=== PATIENT | female | born 1990 | race Caucasian/White ===

== ENCOUNTER 2016-06-28 13:16 | Emergency (ER) | payer OTHER ==
[2016-06-28 13:16] VITALS: BMI 25.7
[2016-06-28 13:33] VITALS: BP 119/98; PULSE 80; RESP 18; TEMP 98.1; O2SAT 100
== END 2016-06-28 14:50 | disposition left against medical advice (07) ==
LOC: H.ER 13:16
DX: Z02.89 Encounter for other administrative examinations (principal)

== ENCOUNTER 2016-06-28 16:52 | Emergency (ER) | payer SELFPAY ==
[2016-06-28 16:52] VITALS: BMI 25.7
[2016-06-28 17:07] VITALS: BP 120/78; PULSE 78; RESP 18; TEMP 98.8; O2SAT 100
== END 2016-06-28 18:27 | disposition left against medical advice (07) ==
LOC: H.ER 16:52
DX: Z02.89 Encounter for other administrative examinations (principal)

== ENCOUNTER 2016-08-29 12:00 | Emergency (ER) | payer SELFPAY ==
[2016-08-29 12:00] VITALS: BMI 25.7
[2016-08-29 12:14] VITALS: BP 115/61; PULSE 62; RESP 20; TEMP 98.5; O2SAT 99
--- NOTE | 2016-08-29 12:49 | ED PDOC ---
HPI: Psych/Substance Abuse Time Seen by Provider: 08/29/16 12:48 Chief Complaint (Nursing): Psychiatric Evaluation Chief Complaint (Provider): PANIC ATTACKS History Per: Patient (26 Y/O FEMALE HERE WITH MULTIPLE PANIC ATTACKS X 2 WEEKS. PATIENT HAS BEEN ON TRAZADONE IN PAST BUT STOPPED X 1 YEAR. DENIES ANY SI/ HI. IS HERE TODAY HOPING TO HAVE RX WRITTEN FOR HER.) Past Medical History Reviewed: Historical Data, Nursing Documentation, Vital Signs Vital Signs: Last Vital Signs Temp 98.5 F 08/29/16 12:14 Pulse 62 08/29/16 12:14 Resp 20 08/29/16 12:14 BP 115/61 08/29/16 12:14 Pulse Ox 99 08/29/16 12:14 - Medical History PMH: Anxiety, Depression, Migraine Denies: Kidney Stones, Chronic Kidney Disease - Surgical History Surgical History: Tonsillectomy - Family History Family History: States: Unknown Family Hx - Home Medications Home Medications: Ambulatory Orders Medication Instructions Recorded ALPRAZolam [Xanax] 0.25 mg PO DAILY PRN #2 tab 08/29/16 - Allergies Allergies/Adverse Reactions: Allergies Allergy/AdvReac Type Severity Reaction Status Date / Time No Known Allergies Allergy Verified 12/18/13 21:14 Review of Systems ROS Statement: Except As Marked, All Systems Reviewed And Found Negative Physical Exam - Reviewed Nursing Documentation Reviewed: Yes Vital Signs Reviewed: Yes - Physical Exam Appears: Positive for: Well, Non-toxic, No Acute Distress Head Exam: Positive for: ATRAUMATIC, NORMAL INSPECTION, NORMOCEPHALIC Skin: Positive for: Normal Color, Warm, DRY Eye Exam: Positive for: EOMI, Normal appearance, PERRL ENT: Positive for: Normal ENT Inspection Neck: Positive for: Normal, Painless ROM Cardiovascular/Chest: Positive for: Regular Rate, Rhythm Respiratory: Positive for: CNT, Normal Breath Sounds Gastrointestinal/Abdominal: Positive for: Normal Exam, Bowel Sounds, Soft Back: Positive for: Normal Inspection Extremity: Positive for: Normal ROM Neurologic/Psych: Positive for: Alert, Oriented - ECG O2 Sat by Pulse Oximetry: 99 - Progress ED Course And Treament: seen by Crisis. cleared for d/c by Dr. Lupillo Hernandez Diagnosis Anxiety EKG: NSR 68bpm; no ectopy; non specific t wave abnormality V3; Patient re-examined. Calm in ED. States concerned about repeat episode of panic. Disposition - Clinical Impression Clinical Impression: Panic attack - Patient ED Disposition Is Patient to be Admitted: No - Disposition Referrals: [facility] [Outside] Disposition: Routine/Home Disposition Time: 14:15 Condition: FAIR Prescriptions: ALPRAZolam [Xanax] 0.25 mg PO DAILY PRN #2 tab PRN Reason: Anxiety Instructions: Panic Attack (ED)
--- NOTE | 2016-08-30 16:47 | CARD ---
APPROVED REPORT EKG Measurement Heart [id number] <Conclusion> Normal sinus rhythm with sinus arrhythmia Normal ECG
== END 2016-08-29 14:42 | disposition home or self-care (01) ==
LOC: H.ER 12:00
DX: F41.0 Panic disorder [episodic paroxysmal anxiety] (principal)

== ENCOUNTER 2017-10-02 14:00 | Emergency (ER) | payer OTHER ==
[2017-10-02 14:00] VITALS: BMI 25.7
[2017-10-02 14:05] VITALS: BP 108/72; PULSE 79; RESP 16; TEMP 98.2; O2SAT 100
--- NOTE | 2017-10-02 14:30 | ED PDOC ---
HPI: Female Pain Time Seen by Provider: 10/02/17 14:18 Chief Complaint (Nursing): Female Genitourinary Chief Complaint (Provider): UTI History Per: Patient Additional Complaint(s): 27 yo female, no PMH, presents to ED 6 weeks , , with complaints of vaginal bleeding and hematuria, vaginal itching and increased frequency. Diagnosed with UTI on by [facility] and prescribed antibiotics. States she has been taking Macrobid as prescribed but symptoms are worsening. Denies abdominal pain. Complaints of swelling to left labia beginning today. No fever, or chills. Past Medical History Reviewed: Nursing Documentation, Vital Signs Vital Signs: Last Vital Signs Temp 98.2 F 10/02/17 14:02 Pulse 79 10/02/17 14:02 Resp 16 10/02/17 14:02 BP 108/72 10/02/17 14:02 Pulse Ox 100 10/02/17 14:02 - Medical History PMH: Anxiety, Depression, Migraine Denies: Kidney Stones, Chronic Kidney Disease - Surgical History Surgical History: Tonsillectomy - Family History Family History: States: Unknown Family Hx - Living Arrangements Living Arrangements: With Family - Social History Current smoker - smoking cessation education provided: No Alcohol: None Drugs: Denies - Home Medications Home Medications: Ambulatory Orders Medication Instructions Recorded ALPRAZolam [Xanax] 0.25 mg PO DAILY PRN #2 tab 08/29/16 Cephalexin [cephalexin] 500 mg PO BID #14 cap 10/02/17 - Allergies Allergies/Adverse Reactions: Allergies Allergy/AdvReac Type Severity Reaction Status Date / Time No Known Allergies Allergy Verified 12/18/13 21:14 Review of Systems ROS Statement: Except As Marked, All Systems Reviewed And Found Negative Genitourinary Female: Positive for: Dysuria, Hematuria Skin: Positive for: Other (abscess) Physical Exam - Reviewed Nursing Documentation Reviewed: Yes Vital Signs Reviewed: Yes - Physical Exam Appears: Positive for: Well, Non-toxic, No Acute Distress Head Exam: Positive for: ATRAUMATIC, NORMAL INSPECTION, NORMOCEPHALIC Skin: Positive for: Normal Color, Warm, DRY Eye Exam: Positive for: EOMI, Normal appearance, PERRL ENT: Positive for: Normal ENT Inspection Neck: Positive for: Normal, Painless ROM Cardiovascular/Chest: Positive for: Regular Rate, Rhythm Respiratory: Positive for: CNT, Normal Breath Sounds Gastrointestinal/Abdominal: Positive for: Normal Exam, Soft Pelvic Exam: Positive for: Other (lft bartholins tenderness, erythema and site firm to palpation, non fluctuant) Back: Positive for: Normal Inspection Extremity: Positive for: Normal ROM Neurologic/Psych: Positive for: Alert, Oriented - Laboratory Results Result Diagrams: 10/02/17 14:53 - ECG O2 Sat by Pulse Oximetry: 100 Medical Decision Making Medical Decision Making: IV access established and diagnostics ordered Pt aferbile, 98.7 F WBC 10.3 UA (+) blood and leuks IV Rocephin started. Case discussed with house OB, Dr. Prado, who agreed Pt stable for discharge with outpatient follow up. Pt reports she will contact [facility] tomorrow. Pt also advised warm compresses to affected area. Return to ED if at anytime condition worsens Disposition - Clinical Impression Clinical Impression: Urinary tract infection, Bartholin cyst - Patient ED Disposition Is Patient to be Admitted: No - Disposition Disposition: Routine/Home Disposition Time: 16:32 Condition: STABLE Prescriptions: Cephalexin [cephalexin] 500 mg PO BID #14 cap Instructions: Urinary Tract Infection, Adult (DC), Bartholin's Gland Cyst Forms: [employer] (Uzbek)
[2017-10-02 15:04] LABS: BASO % 0.3 % (0.0-2.0); EOS # 0.2 K/uL (0.0-0.7); EOS % 2.2 % (0.0-4.0); HEMOGLOBIN 13.1 g/dL (12.0-16.0); LYMPH # 2.1 K/uL (1.0-4.3); MEAN CELL VOLUME 88.1 fl (81.0-99.0); MEAN CORPUSCULAR HEMOGLOBIN 30.4 pg (27.0-31.0); MEAN CORPUSCULAR HGB CONC 34.5 g/dL (33.0-37.0); MEAN PLATELET VOLUME 8.4 fl (7.2-11.7); MONO # 0.9 K/uL (0.0-0.8); MONO % 8.4 % (0.0-10.0); NEUT # 7.1 K/uL (1.8-7.0); NEUT % 69.1 % (50.0-75.0); NRBC % 0.1 % (0.0-0.0); RBC 4.3 Mil/uL (3.80-5.20); RED CELL DISTRIBUTION WIDTH 12.8 % (11.5-14.5); WHITE BLOOD COUNT 10.3 K/uL (4.8-10.8)
[2017-10-02 15:16] LABS: SQUAMOUS EPITHIAL 3 /hpf (0-5); URINE BACTERIA RARE (<OCC); URINE BILIRUBIN NEGATIVE (NEGATIVE); URINE BLOOD LARGE (NEGATIVE); URINE CLARITY SLIGHTY-CLOUDY (Clear); URINE COLOR YELLOW (YELLOW); URINE GLUCOSE (UA) NEG (Normal); URINE LEUKOCYTE ESTERASE LARGE Leu/uL (Negative); URINE PROTEIN NEGATIVE (NEGATIVE); URINE UROBILINOGEN 0.2-1.0 mg/dL (0.2-1.0)
[2017-10-02] MEDS ORDERED: cefTRIAXone (Rocephin) 1 gm Inj ONE (15:38)
--- NOTE | 2017-10-02 16:37 | US ---
Date of service: 10/02/2017 PROCEDURE: Obstetrical ultrasound HISTORY: 6 w, pain and bleeding COMPARISON: Not available TECHNIQUE: Transvaginal and transabdominal FINDINGS: Single live intrauterine gestation. heart rate is 125 beats per minute. The crown-rump length is 6 mm deep to 6 weeks 3 days gestational age. The gestational sac diameter is 1.9 cm to 6 weeks 2 days gestational age. The composite gestational age by ultrasound examination is 6 weeks 3 days. The SATHYA is 05/25/2018. There is no subchorionic hemorrhage. The cervix is closed and measures 3.4 cm in length. The uterus measures 8.4 x 4.5 x 5.2 cm. There is no uterine mass. The right ovary measures 2.8 x 2.5 x 2.1 cm. Normal flow is demonstrated. The left ovary measures 3.1 x 2.0 x 2.4 cm. Normal flow is demonstrated. IMPRESSION: Single live intrauterine gestation of approximately 6 weeks 3 days gestational age. heart rate 125. No subchorionic hemorrhage. Cervix closed.
== END 2017-10-02 17:08 | disposition home or self-care (01) ==
LOC: H.ER 14:00
DX: O23.41 Unspecified infection of urinary tract in pregnancy, first trimester (principal); Z3A.01 Less than 8 weeks gestation of pregnancy; N75.0 Cyst of Bartholin's gland
CPT/HCPCS: 76815; 76817; 81003; 81025; 84702; 85025; 86850; 86900; 87086; 96365; 99283; J0696

== ENCOUNTER 2018-01-03 18:42 | Emergency (ER) | payer OTHER ==
[2018-01-03 18:42] VITALS: BMI 25.7
[2018-01-03 19:32] VITALS: BP 101/65; PULSE 54; RESP 16; TEMP 98.1; O2SAT 100
--- NOTE | 2018-01-03 20:32 | ED PDOC ---
HPI: Abdomen Time Seen by Provider: 01/03/18 20:02 Chief Complaint (Nursing): Abdominal Pain Chief Complaint (Provider): Abdominal Pain History Per: Patient History/Exam Limitations: no limitations Onset/Duration Of Symptoms: Days (x3) Current Symptoms Are (Timing): Still Present Additional Complaint(s): 27 year old female presents to the ED complaining of abdominal pain. Patient is 19 weeks and is and states she has right sided pelvic pain for 3 days. She indicates pain is positional and intermittent and occurs when she lies down on her right side, walks up stairs, and when she lies down flat. Reports vaginal discharge but denies vaginal bleeding, back pain, fever, diarrhea, or urinary complaints. She states she had an ultrasound done for the which was normal. PMD: Brennen Gayle Past Medical History Reviewed: Historical Data, Nursing Documentation, Vital Signs Vital Signs: Last Vital Signs Temp 98.1 F 01/03/18 19:29 Pulse 54 L 01/03/18 19:29 Resp 16 01/03/18 19:29 BP 101/65 01/03/18 19:29 Pulse Ox 100 01/03/18 19:29 - Medical History PMH: Anxiety, Depression, Migraine Denies: Kidney Stones, Chronic Kidney Disease - Surgical History Surgical History: Tonsillectomy - Family History Family History: States: Unknown Family Hx - Home Medications Home Medications: Ambulatory Orders Medication Instructions Recorded ALPRAZolam [Xanax] 0.25 mg PO DAILY PRN #2 tab 08/29/16 Cephalexin [cephalexin] 500 mg PO BID #14 cap 10/02/17 - Allergies Allergies/Adverse Reactions: Allergies Allergy/AdvReac Type Severity Reaction Status Date / Time No Known Allergies Allergy Verified 01/03/18 19:29 Review of Systems ROS Statement: Except As Marked, All Systems Reviewed And Found Negative Constitutional: Negative for: Fever Gastrointestinal: Positive for: Abdominal Pain (right sided pelvic pain). Negative for: Diarrhea Genitourinary Female: Positive for: Vaginal Discharge. Negative for: Dysuria, Hematuria, Vaginal Bleeding Musculoskeletal: Negative for: Back Pain Physical Exam - Reviewed Nursing Documentation Reviewed: Yes Vital Signs Reviewed: Yes - Physical Exam Appears: Positive for: Non-toxic, No Acute Distress Head Exam: Positive for: ATRAUMATIC, NORMOCEPHALIC Skin: Positive for: Normal Color, Warm, Dry Eye Exam: Positive for: Normal appearance, EOMI Neck: Positive for: Normal, Painless ROM Cardiovascular/Chest: Positive for: Regular Rate, Rhythm. Negative for: Murmur Respiratory: Positive for: Normal Breath Sounds. Negative for: Wheezing, Respiratory Distress Gastrointestinal/Abdominal: Positive for: Soft, Tenderness (in suprapubic area) Back: Positive for: Normal Inspection. Negative for: L CVA Tenderness, R CVA Tenderness, Vertebral Tenderness Extremity: Positive for: Normal ROM Neurologic/Psych: Positive for: Alert, Oriented. Negative for: Motor/Sensory Deficits - Laboratory Results Result Diagrams: 01/03/18 20:21 01/03/18 20:21 - ECG O2 Sat by Pulse Oximetry: 100 (RA) Pulse Ox Interpretation: Normal Medical Decision Making Medical Decision Making: Initial Impression: Abdominal pain and Differentials: complications of , UTI; other conditions considered such as ovarian cyst Initial Plan: --BMP --ED urine dipstick --ED urine --CBC --Abdomen US --OB US Scribe Attestation: Documented by Charly Manning acting as a scribe for oMmo Youssef MD. Provider Scribe Attestation: All medical record entries made by the Scribe were at my direction and personally dictated by me. I have reviewed the chart and agree that the record accurately reflects my personal performance of the history, physical exam, medical decision making, and the department course for this patient. I have also personally directed, reviewed, and agree with the discharge instructions and disposition. Disposition - Clinical Impression Clinical Impression: Abdominal pain during - Patient ED Disposition Is Patient to be Admitted: Transfer of Care Counseled Patient/Family Regarding: Studies Performed, Diagnosis - Disposition Disposition: Transfer of Care Disposition Time: 23:00 Condition: IMPROVED Additional Instructions: follow up with your mixing plant dumper in 1-2 days follow up for the findings on the ultrasound return to the ED with any worsening or concerning symptoms Instructions: Symptoms Forms: [employer] (Serbian) Patient Signed Over To: Antonella Stovall Handoff Comments: patient pending US
[2018-01-03 20:38] LABS: BASO % 0.4 % (0.0-2.0); EOS # 0.2 K/uL (0.0-0.7); EOS % 2.2 % (0.0-4.0); HEMOGLOBIN 10.9 g/dL (12.0-16.0); LYMPH # 2.3 K/uL (1.0-4.3); LYMPH % 23.4 % (20.0-40.0); MEAN CORPUSCULAR HEMOGLOBIN 31.5 pg (27.0-31.0); MEAN PLATELET VOLUME 8.2 fl (7.2-11.7); MONO # 0.7 K/uL (0.0-0.8); MONO % 7.4 % (0.0-10.0); NEUT # 6.5 K/uL (1.8-7.0); NEUT % 66.6 % (50.0-75.0); RBC 3.45 Mil/uL (3.80-5.20); RED CELL DISTRIBUTION WIDTH 13.7 % (11.5-14.5); WHITE BLOOD COUNT 9.7 K/uL (4.8-10.8)
[2018-01-03 20:45] LABS: BLOOD UREA NITROGEN 4 mg/dl (7-17); CALCIUM 9.2 mg/dL (8.4-10.2); GFR NON-AFRICAN AMERICAN > 60
--- NOTE | 2018-01-03 23:32 | ED PDOC ---
- Laboratory Results Result Diagrams: 01/03/18 20:21 01/03/18 20:21 - ECG O2 Sat by Pulse Oximetry: 100 (RA) Pulse Ox Interpretation: Normal Medical Decision Making Medical Decision Making: Time: 2299 Patient endorsed to me by Dr. Youssef pending US. Time: 2333 Exam: US - ABDOMINAL COMPLETE Date of service: 01/03/2018 History Abdominal pain. Comparison None. Technique Sonographic evaluation of the right upper quadrant of the abdomen. Findings Liver Measures 15.1 cm in length. Normal echogenicity of the liver parenchyma. No mass. No intrahepatic bile duct dilatation. No ascites. Gallbladder Slightly contracted. No gallstones. Wall Measures 0.2 cm. Common bile duct Measures 0.3 cm. No stones. No dilatation. Pancreas Unremarkable as visualized. No mass. No ductal dilatation. Right kidney Measures 11.0 x 4.0 x 5.0 cm in length. Mild pelvic fullness. No calculus, mass, or hydronephrosis. Left kidney Measures 11.1 x 3.9 x 5.5 cm in length. Mild pelvic fullness. No calculus, mass, or hydronephrosis. Spleen Measures 7.8 cm. No mass. Aorta No aneurysmal dilatation. IVC Unremarkable. Other Findings None. Impression 1. Mild renal pelvic fullness bilaterally. 2. Otherwise, unremarkable study. 3. Consider follow-up with CT if clinically warranted. Time: 2353 Procedure: OB Pelvic Ultrasound History Lower abdominal pain. Comparison None available. Findings Uterus Single Live intrauterine gestation. Placenta: Posterior fundal. Clear from os. Motion: Present Heart rate: 146 bpm. BPD 5.0 cm, 21 weeks 1 day. HC 17.6 cm, 20 weeks 1 day. AC 14.2 cm, 19 weeks 4 days. FL 3.1 cm, 19 weeks 4 days. age (Ultrasound estimated): 20 weeks, 1 day (+/- 1 week 3 days). Melida-gestational hemorrhage: None. Cervix Measures 5.5 cm. Closed. No cervical abnormality seen. Free Fluid None. Other Findings None. Impression Single live intrauterine gestation 20 weeks, 1 day (+/- 1 week 3 days). Posterior fundal placenta. Heart Rate 146 bpm. Patient is made aware of both US and need for outpt follow up and will be discharged home. Upon provider reevaluation patient is feeling better, is medically stable, and requires no further treatment in the ED at this time. Patient will be discharged home. Counseling was provided and all questions were answered regarding diagnosis and need for follow up with senior strategy analyst. There is agreement to discharge plan. Return if symptoms persist or worsen. Scribe Attestation: Documented by Mu Hernandez, acting as a scribe for Antonella Stovall MD. Provider Scribe Attestation: All medical record entries made by the Scribe were at my direction and personally dictated by me. I have reviewed the chart and agree that the record accurately reflects my personal performance of the history, physical exam, medical decision making, and the department course for this patient. I have also personally directed, reviewed, and agree with the discharge instructions and disposition. Disposition Counseled Patient/Family Regarding: Studies Performed, Diagnosis, Need For Followup - Clinical Impression Clinical Impression: Abdominal pain during - POA Present On Arrival: None - Disposition Disposition: Routine/Home Disposition Time: 00:20 Condition: IMPROVED Additional Instructions: follow up with your senior strategy analyst in 1-2 days follow up for the findings on the ultrasound return to the ED with any worsening or concerning symptoms Instructions: Symptoms Forms: [employer] (Thai)
--- NOTE | 2018-01-04 10:49 | US ---
PROCEDURE: HISTORY: LMP unknown COMPARISON: 10/02/2017 TECHNIQUE: Transabdominal scanning of the maternal pelvis and a 2nd/ 3rd trimester with image documentation FINDINGS: Fetus: Single intrauterine gestation heart rate: Present at 146beats per minute presentation: Cephalic Placenta: Fundal and posteriorwithout previa or abruption Amniotic fluid : Normal appearing: anatomy: Grossly unremarkable biometrics: Gestational age by ultrasound: 20 weeks 1 day +/-1 week 3 days Estimated date of delivery by ultrasound 05/22/2018 Estimated weight: 308.04 g +/-40 6.21 g Maternal factors: Uterus: Unremarkable. No myometrial masses Cervix: 5.5 cm length.Closed Free fluid: None IMPRESSION: Single intrauterine gestation -whose ultrasound biometric parameters are concordant with a gestational age of 20 weeks 1 day +/-1 week 3 days.. cardiac activity present and unremarkable. presentation and other findings as above. Concordant results (preliminary interpretation) provided by travis.
--- NOTE | 2018-01-04 12:04 | US ---
HISTORY: lower abdominal pain COMPARISON: None available. TECHNIQUE: Sonographic evaluation of the abdomen. FINDINGS: LIVER: Measures 15.1 cm in sagittal dimension and appears within normal limits.No focal hepatic mass identified. The main portal vein appears patent with normal directional flow. No intrahepatic bile duct dilatation. GALLBLADDER: No gallstones. No gallbladder wall thickening. Negative sonographic Gasca's sign as assessed by the bindery leadperson. COMMON BILE DUCT: Measures 3 mm. PANCREAS: Not well visualized. RIGHT KIDNEY: Measures 11.0 x 4.0 x 5.0 cm. Mild fullness of the right renal pelvis. No obstructing calculus identified. LEFT KIDNEY: Measures 11.1 x 3.9 x 5.5 cm. Mild fullness of the left renal pelvis. No obstructing calculus identified. SPLEEN: Measures approximately 7.8 cm. AORTA: Limited views appear unremarkable. IVC: Limited views appear unremarkable. OTHER FINDINGS: Limited submitted views of the right lower quadrant. The appendix is not identified. IMPRESSION: Mild fullness of bilateral renal pelvis. Please note that limited views were submitted at the right lower quadrant. The appendix is not identified. Nonvisualization of the appendix on ultrasound does not exclude possibility of appendicitis. Preliminary impression was provided by FAGUO.
== END 2018-01-04 00:42 | disposition home or self-care (01) ==
LOC: H.ER 18:42
DX: O26.892 Other specified pregnancy related conditions, second trimester (principal); Z3A.20 20 weeks gestation of pregnancy

== ENCOUNTER 2018-04-26 00:26 | Emergency (ER) | payer OTHER ==
[2018-04-26 01:30] VITALS: BMI 27.8
[2018-04-26 02:11] LABS: SQUAMOUS EPITHIAL 4 /hpf (0-5); URINE BACTERIA OCC (<OCC); URINE BILIRUBIN NEGATIVE (NEGATIVE); URINE BLOOD NEGATIVE (NEGATIVE); URINE CLARITY SLIGHTY-CLOUDY (Clear); URINE COLOR YELLOW (YELLOW); URINE GLUCOSE (UA) NEG (NEGATIVE); URINE LEUKOCYTE ESTERASE NEG Leu/uL (Negative); URINE PROTEIN NEGATIVE (NEGATIVE); URINE UROBILINOGEN 0.2-1.0 mg/dL (0.2-1.0)
[2018-04-26 07:00] VITALS: BP 113/73; PULSE 94; O2SAT 100
--- NOTE | 2018-04-26 08:27 | OBDCSUM ---
Datetime: 04/26/2018 02:00 Discharged to, Provider: Home Follow up at, Provider: Dr. Douglas Disch Instr Activity: Normal activity Disch Instr Diet: Regular Discharge Diagnosis, Provider: False Labor - Undelivered Discharge Time: 04/26/2018 02:01 Follow up in weeks, Provider: 04/27/2018 as scheduled Disch Referrals: None
--- NOTE | 2018-04-26 08:27 | OBHP ---
Datetime: 04/26/2018 02:00 IP Adm Impression: , intrauterine ; No Active Labor; Intact Membranes IP Chief Complaint Other: vaginal discomfort IP Admit Plan: Discharge home Admit Comment, IP Provider: 28yo IUP at 35w6d c/o vaginal discomfrt for 1d. She called Dr Abel Argueta who told her to come in. No Abd pain. No SROM. +FM POBGYNH: G1 no STD PMH: denies PSH: denies NKA PSoH Denies smoking ETOH drugs PFH: denies A: IUP at 35w vaginal pain will dishcarge home and check UA/script given for cephalexin and will call pt with results._ SPoek to Dr Ross and agreed Extremities - PN: Normal Abdomen - PN: Normal General - PN: Normal Presentation-Admit: Vertex FHR - Baseline A Provider: 140 Membranes, Provider: Intact Pool Provider: Negative IP Hx Assessment: The History has been Reviewed and is Current Vital Signs Provider: Reviewed IP Chief Complaint: Maternal discomfort NICHD Variability Prov Fetus A: Moderate 6-25bpm NICHD Accel Fetus A IP Provider: 15X15 FHR Category Provider Fetus A: Category I NICHD Decel Fetus A IP Provider: None Dilatation, Provider: 0 Effacement, Provider: 0
== END 2018-04-26 02:10 | disposition home or self-care (01) ==
LOC: H.EROB2 00:26
DX: O26.93 Pregnancy related conditions, unspecified, third trimester (principal); R10.2 Pelvic and perineal pain; Z3A.35 35 weeks gestation of pregnancy

== ENCOUNTER 2018-05-05 06:08 | Inpatient (IN) | payer OTHER ==
[2018-05-05 07:00] VITALS: BMI 27.3
[2018-05-05] MEDS: Lactated Ringer's 1,000 ML IV SCH ×2 (08:00→19:46)
[2018-05-05] MEDS ORDERED: Lactated Ringer's 1,000 ML IV SCH (08:30)
[2018-05-05 08:43] LABS: HEMOGLOBIN 13.7 g/dL (12.0-16.0); MEAN CELL VOLUME 91.4 fl (81.0-99.0); MEAN CORPUSCULAR HEMOGLOBIN 30.5 pg (27.0-31.0); MEAN CORPUSCULAR HGB CONC 33.4 g/dL (33.0-37.0); RBC 4.47 Mil/uL (3.80-5.20); RED CELL DISTRIBUTION WIDTH 13.4 % (11.5-14.5); WHITE BLOOD COUNT 13.5 K/uL (4.8-10.8)
[2018-05-05] MEDS ORDERED: Fentanyl/Bupivacaine HCl 250 ML EPI ONE (09:45)
[2018-05-05] MEDS ORDERED: Oxytocin 30 UNIT 30 UNITS/500 ML BAG IV ONE ×2 (11:16→16:30)
--- NOTE | 2018-05-05 12:30 | OBADHP ---
Datetime: 05/05/2018 12:20 Admit Comment, IP Provider: term uneventful course admitted with prom aregular c ontractions q2-4minsin labor for delivery Pelvic Type - PN: Adequate Extremities - PN: Normal Abdomen - PN: Normal Back - PN: Normal Breast - PN: Normal Lungs - PN: Normal Heart - PN: Normal Thyroid - PN: Normal Neurologic - PN: Normal HEENT - PN: Normal General - PN: Normal FHR - Baseline A Provider: 130 Contraction Comments Provider: q 2-3 Gestation - Est Wks by US: 37+ Pool Provider: 2-3 Vital Signs Provider: Reviewed; Within Normal Limits IP Chief Complaint: Uterine contractions; Suspected ruptured membranes NICHD Variability Prov Fetus A: Moderate 6-25bpm NICHD Accel Fetus A IP Provider: 10X10 FHR Category Provider Fetus A: Category I NICHD Decel Fetus A IP Provider: None Dilatation, Provider: 1 Effacement, Provider: 80% Station, Provider: -1 Genitourinary Exam: Normal DTRs - PN: Normal EGA AdmitDate IP: 37.1 IP Adm Impression: Term, intrauterine ; Ruptured Membranes IP Admit Plan: Admit to unit; Initiate labor augmentation protocol Datetime: 04/26/2018 02:00 IP Chief Complaint Other: vaginal discomfort Presentation-Admit: Vertex Membranes, Provider: Intact IP Hx Assessment: The History has been Reviewed and is Current
[2018-05-05] MEDS ORDERED: Bupivacaine HCl 0.25% PF (10 ml) Inj ONE (15:54)
--- NOTE | 2018-05-05 16:58 | OBDS ---
DELIVERY PERSONNEL Delivery Doctor: Melody Douglas MD Refuse And Recycling Worker: Briana Noble RNc/ michelle hidalgo rnc Anesthesiologist: Yordy Snyder MD Batch And Furnace Manager: steff snyder MATERNAL INFORMATION Delivery Anesthesia: Local; Epidural Medications in Delivery: pitocin 30 units for augmentation Estimated Blood Loss (ml): 200 Placenta Cultured: No Maternal Complications: None Provider Comments: delivery of live baby boy 9/9 clear fluid cord with [address] midline episiotomy and repair with 2-0 chromic LABOR SUMMARY EDC: 05/25/2018 00:00 No. Babies in Womb: 1 Attempted: No Labor Anesthesia: Epidural LABOR INFORMATION Reason for Induction: Not Applicable Onset of Labor: 05/05/2018 05:00 Complete Dilatation: 05/05/2018 14:10 Oxytocin: Augmentation Group B Beta Strep: Negative Steroids Given: None Reason Steroids Not Administered: Not Applicable MEMBRANES Membranes Rupture Method: Spontaneous Rupture of Membranes: 05/05/2018 05:30 Length of Rupture (hrs): 10.88 Amniotic Fluid Color: Bloody Amniotic Fluid Amount: Small Amniotic Fluid Odor: Normal STAGES OF LABOR Stage 1 hrs: 9 Stage 1 min: 10 Stage 2 hrs: 2 Stage 2 min: 13 Stage 3 hrs: 0 Stage 3 min: 7 Total Time in Labor hrs: 11 Total Time in Labor min: 30 VAGINAL DELIVERY Episiotomy: Median Laceration Extension: N/A Laceration Type: None Initial Vag Sponge Count: 15 Final Vag Sponge Count: 15 Initial Vag Sharps Count: 1 Final Vag Sharps Count: 1 Sponge Count Correct: Yes Sharps Count Correct: Yes BABY A INFORMATION Infant Delivery Date/Time: 05/05/2018 16:23 Method of Delivery: Vaginal Born in Route : Yes : N/A Forceps: N/A Vacuum Extraction: N/A Shoulder Dystocia : No SHOULDER DYSTOCIA BABY A Infant Delivery Date/Time: 05/05/2018 16:23 PRESENTATION/POSITION BABY A Presentation: Compound Cephalic Presentation: Vertex Vertex Position: Left Occipital Anterior Breech Presentation: N/A PLACENTA INFORMATION BABY A Placenta Delivery Time : 05/05/2018 16:30 Placenta Method of Delivery: Spontaneous Placenta Status: Delivered SCORES BABY A Heart Rate 1 min: >100 bpm Resp Effort 1 min: Good Cry Reflex Irritability 1 min: Cough or Sneeze or Pulls Away Muscle Tone 1 min: Active Motion Color 1 min: Body [place], Extremities Blue Resuscitation Effort 1 min: Tactile Stimulation SCORE 1 MIN: 9 Heart Rate 5 min: >100 bpm Resp Effort 5 min: Good Cry Reflex Irritability 5 min: Cough or Sneeze or Pulls Away Muscle Tone 5 min: Active Motion Color 5 min: Body [place], Extremities Blue SCORE 5 MIN: 9 Heart Rate 10 min: >100 bpm Resp Effort 10 min: Good Cry Reflex Irritability 10 min: Cough or Sneeze or Pulls Away Muscle Tone 10 min: Active Motion Color 10 min: Completely [place] SCORE 10 MIN: 10 INFANT INFORMATION BABY A Gestational Age at Delivery: 37+1 Gestational Status: Term Infant Outcome : Liveborn Infant Condition : Stable Sex: Male IDENTIFICATION/MEDS BABY A ID Band Number: [id number] ID Band Location: Left Leg; Left Arm WEIGHT/LENGTH BABY A Infant Birthweight (gms): 3400 Infant Weight (lb): 7 Infant Weight (oz): 8 CORD INFORMATION BABY A No. Cord Vessels: 3 Nuchal Cord : N/A Nuchal Cord Other: none True Knot: none Infant Cord pH Baby Arterial: no Cord pH Baby Venous: no Cord Blood Taken: Yes Banking/Donate Info: no Suction: Mouth
[2018-05-05] MEDS ORDERED: Oxycodone/Acetaminophen 5/325 mg Tab PO PRN ×4 (17:56→18:25)
[2018-05-05] MEDS ORDERED: Benzocaine/Menthol SPRAY TOP PRN ×2 (17:56→18:25)
[2018-05-06 07:13] LABS: HEMOGLOBIN 11.6 g/dL (12.0-16.0); MEAN CELL VOLUME 90.9 fl (81.0-99.0); MEAN CORPUSCULAR HGB CONC 34.1 g/dL (33.0-37.0); RBC 3.73 Mil/uL (3.80-5.20); RED CELL DISTRIBUTION WIDTH 13.5 % (11.5-14.5); WHITE BLOOD COUNT 16.5 K/uL (4.8-10.8)
--- NOTE | 2018-05-06 14:49 | OBPPN ---
Datetime: 05/06/2018 14:47 PP Pain Prov: Within normal limits PP Nausea Prov: Denies PP Flatus Prov: Yes PP BM Prov: No PP Breasts Prov: Normal PP Heart Prov: Normal PP Lungs Prov: Normal PP Abdomen/Uterus Prov: Normal PP Lochia Prov: Normal PP Vulva/Perineum Prov: Normal PP CVA Tenderness Prov: Normal PP Extremities Prov: Normal PP Progress Prov: Normal PP Impression Prov: Normal progression PP Plan Prov: Continue present management IP PP Procedures: None Vital Signs Provider PP: Reviewed; Within Normal Limits
--- NOTE | 2018-05-07 11:15 | OBPPN ---
Datetime: 05/07/2018 11:10 PP Pain Prov: Within normal limits PP Pain Prov comment: No SOB, chest or leg pains PP Nausea Prov: Denies PP Flatus Prov: Yes PP Nausea Prov comment: voiding well PP Breasts Prov: Normal PP Lungs Prov: Normal PP Abdomen/Uterus Prov: Abnormal PP Lochia Prov: Normal PP Vulva/Perineum Prov: Not Done PP CVA Tenderness Prov: Normal PP Extremities Prov: Normal PP C/S Incision Prov: Not Applicable PP Progress Prov: Normal PP Comments Phys Exam Prov: breasts not engorged NT; Abd soft ND, fundus firm below the umb NT Ext no calf tenderness. PP Impression Prov: Normal progression PP Plan Prov: Discharge PP Progress Note Prov: D/C home with instructions and follow up office 4-6 wks IP PP Procedures: None Vital Signs Provider PP: Reviewed
--- NOTE | 2018-05-07 11:17 | OBDCSUM ---
Datetime: 05/07/2018 11:14 Discharged to, Provider: Home Follow up at, Provider: Dr Douglas Disch Instr Activity: Normal activity; Bedrest; May be up to bathroom; May be up for meals; May Show er Disch Instr Diet: Regular Discharge Instructions, Provider: Routine instructions given Discharge Diagnosis, Provider: Term Delivered Discharge Time: 05/07/2018 11:14 Follow up in weeks, Provider: office Contraception discussed, Prov: Yes Disch Activity Restrictions: No exercising; No lifting; No driving; Minimize walking; Minimize stair -climbing; No sexual activity; Nothing in vagina - [place], tampons, douche Discharge Comment, Provider: instructions given and continue PNC vit Contraception after Delivery: Undecided
[2018-05-07 18:01] VITALS: BP 125/83; PULSE 91; RESP 20; TEMP 98.1; O2SAT 100
== END 2018-05-07 11:50 | disposition home or self-care (01) | DRG 373 ==
LOC: H.EROB2 06:08 → H.L&D 07:25 → H.OB/GYN 20:22
PROVIDERS: ADMIT Specialist; ATTEND Specialist
PROC: 10E0XZZ Delivery of Products of Conception, External Approach (ICD-10-PCS; principal; 2018-05-05)
PROC: 0W8NXZZ Division of Female Perineum, External Approach (ICD-10-PCS; 2018-05-05)
DX: O80 Encounter for full-term uncomplicated delivery (principal); Z3A.37 37 weeks gestation of pregnancy; Z37.0 Single live birth